=== PATIENT | female | born 2000 | race Caucasian/White ===

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

== ENCOUNTER 2024-09-13 16:59 | Emergency (ER) | payer MEDICAID, OTHER ==
[~2024-09-13] VITALS: Ht 170.2 cm; Wt 113.0 kg
[2024-09-13 17:02] VITALS: BP 127/92; PULSE 97; RESP 16; TEMP 97; O2SAT 95
== END 2024-09-13 23:55 | disposition left against medical advice (07) ==
LOC: ER 17:00
DX: K92.0 Hematemesis (principal); Z53.21 Procedure and treatment not carried out due to patient leaving prior to being seen by health care provider

== ENCOUNTER 2024-10-02 15:32 | Emergency (ER) | payer MEDICAID, OTHER ==
[~2024-10-02] VITALS: Ht 170.2 cm; Wt 100.0 kg
[2024-10-02 15:39] VITALS: BP 115/84; PULSE 86; RESP 16; TEMP 97.7; O2SAT 97
[2024-10-02] MEDS: pantoprazole 40mg Tablet.DR PO ONE (16:12)
[2024-10-02] MEDS: LIDOcaine 2% Viscous 15ml cup MM ONE (16:13)
[2024-10-02] MEDS: mag hydrox/Alum hydrox/simeth 30ml oral suspension PO ONE (16:13)
[2024-10-02] MEDS: dicyclomine 10 MG capsule PO ONE (16:13)
[2024-10-02 16:35] LABS: BASOPHILS % (AUTO) 0.6 % (0-1); EOSINOPHILS # (AUTO) 0.1 X10'3 (0-0.9); EOSINOPHILS % (AUTO) 0.9 % (0-6); HEMATOCRIT 40.7 % (35.0-45.0); LYMPHOCYTES # (AUTO) 2.1 X10'3 (1.1-4.8); MEAN CORPUSCULAR HEMOGLOBIN 29.2 PG (27.0-31.0); MEAN CORPUSCULAR HGB CONC 34.3 g/dL (33.0-36.5); MEAN CORPUSCULAR VOLUME 85.4 FL (78-98); MEAN PLATELET VOLUME 8.3 FL (7.4-10.4); MONOCYTES # (AUTO) 0.4 X10'3 (0-0.9); MONOCYTES % (AUTO) 5.1 % (2-12); NEUTROPHILS # (AUTO) 4.6 X10'3 (1.8-7.7); NEUTROPHILS % (AUTO) 64.4 % (42-75); PLATELET COUNT 279 X10'3 (140-440); RED BLOOD COUNT 4.77 X10'6 (4.20-5.60); RED CELL DISTRIBUTION WIDTH 13.3 % (11.5-14.5); WHITE BLOOD COUNT 7.1 X10'3 (4.5-11.0)
[2024-10-02 16:45] LABS: ALANINE AMINOTRANSFERASE 21 U/L (12-78); ALBUMIN 3.6 G/DL (3.4-5.0); ALKALINE PHOSPHATASE 61 IU/L (46-116); ANION GAP 9 (8-16); APTT 27 SECONDS (22-32); ASPARTATE AMINO TRANSFERASE 17 U/L (10-37); BILIRUBIN,TOTAL 0.3 MG/DL (0.1-1.0); BLOOD UREA NITROGEN 13 MG/DL (7-18); BUN/CREATININE RATIO 17.1 (10.0-20.0); CALCIUM 8.9 MG/DL (8.5-10.1); CHLORIDE 104 MMOL/L (99-107); CREATININE 0.76 MG/DL (0.40-0.90); GLUCOSE 105 MG/DL (70-104); LIPASE 34 U/L (16-77); POTASSIUM 3.9 MMOL/L (3.5-5.1); PROTHROMBIN TIME 10.4 SECONDS (9.0-12.0); SODIUM 139 MMOL/L (135-145); TOTAL CARBON DIOXIDE 26.5 MMOL/L (24-32); TOTAL PROTEIN 7.1 G/DL (6.4-8.2); eCRCL 113 ML/MIN; eGFR > 90 ML/MIN
[2024-10-02] MEDS ORDERED: DICY20TA17 PO (16:52)
[2024-10-02] MEDS ORDERED: PANT-47 PO (16:52)
== END 2024-10-02 17:20 | disposition home or self-care (01) ==
LOC: ER 15:33
DX: K29.20 Alcoholic gastritis without bleeding (principal); K92.0 Hematemesis
CPT/HCPCS: 36415; 80053; 83690; 85025; 85610; 85730; 86885; 86900; 86901; 99284